=== PATIENT | female | born 1985 | race Caucasian/White ===

== ENCOUNTER 2017-08-04 07:30 | Inpatient (IN) | payer OTHER ==
--- NOTE | 2017-07-22 15:46 | HP ---
ADDENDUM: PLAN: Laparoscopic removal of laparoscopic adjustable gastric band and subcutaneous components and laparoscopic Ellie-en-Y gastric bypass possible laparoscopic cholecystectomy JEAN FRYE, LEONARD [id number]/CPS #: [id number] MTDD
--- NOTE | 2017-07-22 15:46 | HP ---
ADDENDUM NOW INCLUDED ON THIS REPORT HISTORY AND PHYSICAL: DATE OF ADMISSION: 08/04/17 DATE OF ENCOUNTER: 07/22/17 ADMITTING PHYSICIAN: Dr. Bear.* (DICTATED BY JEAN FRYE NP) CHIEF COMPLAINT: Morbid obesity. HISTORY OF PRESENT ILLNESS: Ms. Keita is a 32-year-old female with history of obesity. She had a laparoscopic adjustable gastric band placed in 2010 with initial good results and weight loss of approximately 34% of excess body weight. Unfortunately, she did experience weight regain and has elected to undergo laparoscopic Ellie-en-Y gastric bypass and removal of laparoscopic adjustable gastric band with Dr. Bear on 08/04/17. Preoperative workup did demonstrate gallstones. Dr. Bear recommends possible laparoscopic cholecystectomy at the time of surgery as well. PAST MEDICAL HISTORY: Significant for anxiety, depression and hypertension, which is untreated at this time. PAST SURGICAL HISTORY: Laparoscopic adjustable gastric band placed in 2010. MEDICATIONS: 1. Effexor immediate release 100 mg 3 times a day. 2. Flintstones Complete 60 mg 1 daily. 3. Vitamin D3, 5000 international units once per day. 4. Implanon 68 mg. 5. Diphenhydramine 50 mg as needed. ALLERGIES: No known drug allergies. FAMILY HISTORY: Positive for diabetes, hypertension and hyperlipidemia, mental illness, obesity and thyroid disease. SOCIAL HISTORY: The patient is legally . She lives with her mother and father. 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 She rarely consumes alcohol. Denies drug use. Does not smoke. REVIEW OF SYSTEMS: Constitutional: The patient denies constitutional systems. HEENT: Denies headache, lightheadedness or dizziness. Cardiovascular: Reports hypertension which is not medicated. Denies chest pain, arm pain with exertion, heart attack, heart murmur, heart palpitations, high blood pressure, pulmonary embolism, DVT. Respiratory: Reports shortness of breath with exercise. Otherwise, no respiratory complaints. GI: Reports constipation. Denies GERD, nausea, or vomiting. : Denies nocturia, urinary frequency or urgency. Uses Implanon for control and is on her menstrual cycle right now. Musculoskeletal: Denies musculoskeletal symptoms. Neuro: Denies dizziness, blurred vision or headache. Psych: Reports anxiety and depression which is well controlled with medication. Denies suicidal thoughts. PHYSICAL EXAMINATION GENERAL: On examination, the patient is noted to be calm and cooperative, in no acute distress. She is alert and oriented x3. Healthy, well developed, appropriately groomed, appears to have centripetal obesity. VITAL SIGNS: Height is 5 feet 7 inches, weight 270 pounds 2 ounces, BMI is 42.3. Blood pressure is 150/85, pain is 0, temperature is 97.1, pulse 72, respirations 16. HEENT: Head, face is atraumatic, normocephalic on inspection. Ears, nose, mouth, throat, auditory acuity; hearing is grossly normal for conversation, dentition in good repair. NECK: Normal to inspection. RESPIRATORY: Respiration rate is normal. Auscultate clear lungs sounds bilaterally. CARDIOVASCULAR: Heart rate is regular. S1 and S2. No murmurs, gallops, or rubs are auscultated. ABDOMEN: Obese, nontender, nondistended. Bowel sounds auscultated in four quadrants. EXTREMITIES: Peripheral circulation is normal. No evidence of clubbing or cyanosis. Positive DP pulse bilaterally. MUSCULOSKELETAL: She walks with normal gait and station. NEURO: She is alert and oriented x3. Good historian. Speech is articulate and fluent. SKIN: Warm and dry. PSYCH: Mood is normal. Affect is normal. Cognition, orientation is intact to person, place and time. Judgment and insight are grossly intact. ASSESSMENT AND PLAN: Ms. Keita is a 32-year-old female, status post laparoscopic adjustable gastric band with postoperative weight regain and morbid obesity. She elects to undergo removal of laparoscopic adjustable gastric band, laparoscopic Ellie-en-Y gastric bypass and possible laparoscopic cholecystectomy with Dr. Bear on 08/04/17. Prescription for Lortab Elixir was sent to her pharmacy. She will follow up with Dr. Bear in the office on 08/12/17. ADDENDUM: PLAN: Laparoscopic removal of laparoscopic adjustable gastric band and subcutaneous components and laparoscopic Ellie-en-Y gastric bypass possible laparoscopic cholecystectomy JEAN FRYE, LEONARD [id number]/[facility] #: [id number]/CPS #: [id number] [facility]ITAL[facility]ek[facility]
[~2017-08-04 07:30] MED LIST: Dexamethasone IV* 4 MG/ML 1 ML (4 MG) IV SLOW PU ONE; Famotidine IV* 10 MG/ML 2 ML (20 mg) IV ONE; Scopolamine 1.5 mg* PATCH TRANSDERM ONE
[2017-08-04] MEDS ORDERED: Buffered Lidocaine 0.9% SYRIN* 5 ML/SYR SYRINGE ONE (07:36)
[2017-08-04] MEDS ORDERED: Scopolamine 1.5 mg* PATCH ONE (07:36)
[2017-08-04] MEDS ORDERED: Dexamethasone IV* 4 MG/ML 1 ML (4 MG) ONE (07:36)
[2017-08-04] MEDS ORDERED: ceFAZolin 1 GM ADVAN(*) 1 GM ADDV.VIAL IVPB ONE (07:36)
[2017-08-04] MEDS ORDERED: Clindamycin 900 MG IVPREMIX(* 900 MG/50 ML SDV IV ONE (07:36)
[2017-08-04] MEDS ORDERED: ceFAZolin 2 GM PREMIX (*) 2 GM/50 ML BAG IVPB ONE (07:36)
[2017-08-04] MEDS ORDERED: Famotidine IV* 10 MG/ML 2 ML (20 mg) ONE (07:36)
[2017-08-04] MEDS ORDERED: Heparin VIAL(*) 5000 UNITS/ML VIAL (FIVE THOUSAND) ONE (07:37)
[2017-08-04] MEDS: Buffered Lidocaine 0.9% SYRIN* 5 ML/SYR SYRINGE INTRADERM ONE ×2 (07:55→15:55)
[2017-08-04] MEDS ORDERED: Bupivacaine 0.5% SDV PF* 30 ML VIAL ONE (10:27)
[2017-08-04] MEDS ORDERED: Methylene Blue 0.5 %* 50 MG/10 ML AMP IV ONE (10:27)
[2017-08-04] MEDS ORDERED: Acetaminophen IV 1GM/100ML * 1,000 MG/100 ML VIAL IVPB ONE (10:30)
[2017-08-04] MEDS ORDERED: PROCHLORPERAZINE INJ 5 MG/ML 2 ML VIAL IV PRN (10:30)
[2017-08-04] MEDS ORDERED: Morphine INJ* 2 MG/ML 1 ML CARPUJECT IV PRN (10:30)
[2017-08-04] MEDS ORDERED: fentaNYL* 50 MCG/ML 2 ML VIAL (100 MCG VIAL) IV PRN (10:30)
[2017-08-04] MEDS ORDERED: fentaNYL* 50 MCG/ML 2 ML VIAL (100 MCG VIAL) ONE ×3 (10:32→13:22)
[2017-08-04] MEDS ORDERED: Midazolam* 1 MG/ML 5 ML VIAL (5 MG) ONE (10:32)
[2017-08-04] MEDS ORDERED: Rocuronium* 10 MG/ML VIAL ONE ×2 (10:46→11:37)
[2017-08-04] MEDS ORDERED: Propofol* 10 MG/ML 20 ML BTL IV PUSH ONE (10:49)
[2017-08-04] MEDS ORDERED: Lidocaine 2% PF * 5 ML VIAL ONE (10:49)
[2017-08-04] MEDS ORDERED: Labetalol IV* 5 MG/ML 20 ML VIAL ONE (11:09)
[2017-08-04] MEDS ORDERED: Ketorolac INJ* 30 MG/ML 1 ML VIAL ONE ×2 (11:10→15:46)
[2017-08-04] MEDS ORDERED: EPHEDrine (Pressors)* 50 MG/ML VIAL ONE (11:28)
[2017-08-04] MEDS ORDERED: Phenylephrine IV* 40 MCG/ML 10 ML SYRINGE ONE (11:57)
[2017-08-04] MEDS ORDERED: Ondansetron INJ* 2 MG/ML VIAL ONE ×2 (12:57→15:46)
[2017-08-04] MEDS ORDERED: diPHENhydraMINE IV* 50 MG/ML 1 ml VIAL (BENADRYL) SLOW PUSH PRN (13:54)
[2017-08-04] MEDS ORDERED: Acetaminophen IV 1GM/100ML * 100 ML ONE (13:57)
--- NOTE | 2017-08-04 14:05 | PN ---
Progress Note - Progress Note Date of Service: 08/04/17 Note: Brief Operative Note: Pre-op: Morbid obesity Post-op: Same Procedure: Laparoscopic removal of gastric band with conversion to Ellie-en-Y gastric bypass, and laparoscopic cholecystectomy Surgeon: Dr. Bear Chief Commercial Officer: BEVERLY Gonsalez/ BEVERLY Breaux Anaesthesia: GETA EBL: Minimal Catheter: Marley to gravity Fluids: LR 2000 cc Drains: BALDEV to self suction Specimen: Gall bladder/ lap band Findings: See dictated op note
[2017-08-04] MEDS ORDERED: PROCHLORPERAZINE INJ 5 MG/ML 2 ML VIAL ONE (14:16)
[2017-08-04] MEDS: Ketorolac INJ* 30 MG/ML 1 ML VIAL IV PRN ×2 (15:49→21:59)
[2017-08-04] MEDS: Ondansetron INJ* 2 MG/ML VIAL IV PRN (15:49)
[2017-08-04] MEDS: HYDROmorphone INJ* 2 MG/ML CARPUJECT SYRINGE IV PRN ×2 (16:32→19:50)
[2017-08-04] MEDS: Famotidine IV* 10 MG/ML 2 ML (20 mg) IV SLOW PU SCH (21:48)
[2017-08-04] MEDS: Heparin VIAL(*) 5000 UNITS/ML VIAL (FIVE THOUSAND) SUBCUT SCH (21:53)
[2017-08-04] MEDS: VENLAFAXINE 100 MG PO SCH (22:05)
[2017-08-05] MEDS: HYDROmorphone INJ* 2 MG/ML CARPUJECT SYRINGE IV PRN ×2 (01:55→09:49)
--- NOTE | 2017-08-05 02:46 | OP ---
CC: Alex Everett MD; [facility] * DATE OF OPERATION: 08/04/17 - ROOM #353 DATE OF : 85 SURGEON: Morro Bear MD ASSISTANTS: BEVERLY Rob and BEVERLY Wallace ANESTHESIOLOGIST: Brian Raya MD ANESTHESIA: General endotracheal. PRE-OP DIAGNOSES: Morbid obesity, status post laparoscopic adjustable gastric banding, and cholelithiasis. POST-OP DIAGNOSES: Morbid obesity, status post laparoscopic adjustable gastric banding, and cholelithiasis. OPERATIVE PROCEDURES: Laparoscopic removal of laparoscopic adjustable gastric band and subcutaneous components with conversion to laparoscopic Ellie-en-Y gastric bypass and laparoscopic cholecystectomy. ESTIMATED BLOOD LOSS: 20 mL. IV FLUIDS: 2 L. SPECIMEN: Gallbladder. DRAINS: A 7-mm Rc Hauser. COMPLICATIONS: None. COUNTS: Needle, instrument, and sponge counts were correct. DESCRIPTION OF PROCEDURE: The patient was brought to the operating room and placed on the table supine. Sequential compression devices were placed on both lower extremities. General anesthesia was administered. Marley catheter was placed. She was positioned and padded appropriately. She received appropriate intravenous antibiotics. She was prepped and draped in the usual sterile fashion. A time-out was performed. Local anesthetic was infiltrated into the skin and soft tissue prior to making each incision. The initial entry into the abdomen was through a left upper quadrant incision accommodating a 12-mm optical trocar. Carbon dioxide was insufflated to a pressure of 15 mmHg. Under direct visualization, a 12-mm bladeless trocar was placed in the supraumbilical midline and also in the right upper quadrant. A 5-mm trocars were placed in the right upper quadrant medially and left upper quadrant laterally. A Janessa liver retractor was placed percutaneously in the subxiphoid position and used to elevate the left lobe of the liver. Tubing for the band was followed to the stomach. There were no adhesions to the undersurface of the liver. The omentum was adherent to the band and this was divided using a combination of cautery and LigaSure. The band was noted to be encapsulated. The capsule was opened with cautery. The buccal was identified. The band was unlocked and the buccal was cut and removed. The band was removed from the retrogastric tunnel. The gastrogastric plication sutures were then taken down using a combination of sharp and blunt dissection with LigaSure on vascular portions of the adhesions. After taking down the gastrogastric plication, the capsule of the band was incised on the right side of the stomach. A perigastric dissection was then undertaken on the lesser curvature bluntly and the lesser sac was entered. A gastric pouch was fashioned first with a transverse firing using the EndoGIA stapler with a purple cartridge. Retrogastric dissection was then performed using blunt dissection and with LigaSure to dissect the retrogastric approach to the area of the angle of His. A window was created there in the avascular tissues and then the gastric pouch was completed with additional firings of the EndoGIA stapler using reinforced purple cartridges on the vertical portions of the gastric pouch. After completing the division, the pouch was inspected. The size was estimated at 15 to 30 mL volume. Next, the transverse colon was retracted superiorly and the ligament of Treitz was identified. The jejunum was measured out 30 to 40 cm and this loop was secured to the left lateral staple line on the gastric pouch with the use of 3-0 silk interrupted sutures. Then, the gastrojejunal anastomosis was performed with the EndoGIA stapler with a 30-mm levine cartridge and the closure of the common gastroenterotomy was performed over a 36- Faroese gastric lavage tube. Lastly, the loop of jejunum was divided to the left of the anastomosis with the EndoGIA stapler with a levine cartridge. The anastomosis was then tested with methylene blue dye solution instilled through the orogastric tube and no leak was identified. The jejunum was then measured out for a 75 cm Ellie limb and at this point, a functional end- to-side jejunojejunostomy was created. This was done with the EndoGIA stapler with a 60-mm levine cartridge. The common enterotomy was closed again with 3-0 PDS. Anti-obstruction structures of 3-0 silk were placed proximally and distally to the anastomosis. The mesenteric defect was closed with 3-0 silk in a running fashion. Lastly, the Janessa liver retractor was repositioned and the cholecystectomy was performed. There were some chronic adhesions near the infundibulum. The fundus retracted superiorly and the adhesions at the infundibulum were taken down sharply. The peritoneum investing the gallbladder was incised along the medial and lateral aspects in order to identify the wall of the gallbladder. The dissection was then performed in the area of the triangle of Calot. The cystic artery was dissected out as well as the cystic duct and a critical view was obtained. The cystic artery was divided with a LigaSure. Both posterior and anterior branches were divided separately. The cystic duct was doubly clipped and divided and then gallbladder was freed from attachments to the liver bed using the electrocautery. Once the gallbladder was freed, it was placed in the endoscopic retrieval bag. Clips were noted to be intact and hemostasis was excellent. The Lap-Band port was removed by incising the skin through the previous scar. Subcutaneous tissues were divided with cautery and the port was freed. The port was divided from the tubing and then the tubing was allowed to retract within the abdominal cavity. The tubing for the band and the bag containing the gallbladder were retrieved through the left upper quadrant port, both intact. The BALDEV drain was then placed into the abdominal cavity and withdrawn through the left upper quadrant 5 mm port site. The BALDEV drain was positioned posterior to and along the vertical access of the gastric pouch and anastomosis. The drain was secured to the skin with 3-0 Prolene. It was placed to the suction bulb. The ports were removed under direct visualization. Carbon dioxide was released. Skin incisions were irrigated and closed with case. Dressings were applied. The patient tolerated this procedure well. She was extubated and transferred to Recovery in stable condition. [id number]/[facility] #: [id number] FAUSTINO
[2017-08-05] MEDS: Ketorolac INJ* 30 MG/ML 1 ML VIAL IV PRN ×2 (06:28→16:52)
[2017-08-05] MEDS: Heparin VIAL(*) 5000 UNITS/ML VIAL (FIVE THOUSAND) SUBCUT SCH ×3 (06:32→22:24)
[2017-08-05] MEDS ORDERED: Acetaminophen ADULT LIQ* 650 MG/20.3 ML UDC PO PRN (09:07)
--- NOTE | 2017-08-05 09:13 | SURGPN ---
Subjective - Introduction -: Admitted on: 08/04/17 Patient's surgical date: 08/04/17 Procedure completed: Laparoscopic gastric band removal, RYGB and cholecytectomy - Medications -: Active Medications Generic Name Dose Route Start Last Admin Trade Name Freq PRN Reason Stop Dose Admin Diphenhydramine HCl 25 mg 08/04/17 13:54 Benadryl Iv* SLOW PUSH Q6H PRN ITCHING Famotidine 20 mg 08/04/17 21:00 08/04/17 21:48 Pepcid Iv* IV SLOW PU 20 mg BID GREG Administration Heparin Sodium (Porcine) 5,000 units 08/04/17 22:00 08/05/17 06:32 Heparin Vial(*) SUBCUT 5,000 units Q8HR GREG Administration Hydromorphone HCl 0.5 mg 08/04/17 13:54 08/05/17 01:55 Dilaudid Inj* IV 0.5 mg Q3H PRN Administration PAIN Potassium Chloride/Dextrose 1,000 mls @ 125 mls/hr 08/05/17 13:55 D5w 1/2 Ns Kcl 20 Meq 1000 Ml* IV PER RATE GREG Lactated Ringer's 1,000 mls @ 150 mls/hr 08/04/17 14:00 08/05/17 04:46 Lactated Ringers 1000 Ml Bag* IV 08/05/17 13:55 150 mls/hr PER RATE GREG Administration Ketorolac Tromethamine 30 mg 08/04/17 13:54 08/05/17 06:28 Toradol Inj* IV 08/06/17 13:55 30 mg Q6H PRN Administration PAIN Ondansetron HCl 4 mg 08/04/17 13:54 08/04/17 15:49 Zofran Inj* IV 4 mg Q6H PRN Administration NAUSEA/VOMITING Pharmacy Profile Note 1 note 08/07/17 06:00 Scopolamine Patch Remove* PATCH OFF 08/07/17 06:01 ONCE ONE Venlafaxine HCl 100 mg 08/04/17 21:00 08/04/17 22:05 Effexor Tab (Nf) PO 100 mg TID GREG Administration Protocol - Comments Comments: Patient seen and examined at bedside. Has been walking down prajapati few times already. Doing very well, has no complaints. Denies nausea, vomiting or abdominal pain. Passing flatus, Marley already removed last night. Objective - Objective -: Awake and alert, comfortable and in NAD. - Intake and Output -: Intake & Output 08/03/17 08/04/17 08/05/17 08/06/17 06:59 06:59 06:59 06:59 Intake Total 4251 Output Total 1800 Balance 2451 Weight 259 lb Intake: IV Fluids 4221 LR 4221 Oral 30 Output: BALDEV #1 75 Urine 1350 Marley 375 Surgical Physical Exam - Comments -: Vitals reviewed, stable, Tmax 98.5 Lungs CTA bilat. Heart RRR, no murmurs Abdomen soft, NT, ND. Incisions clean, dry and intact. No guarding, rigidity or rebound. Ext. without edema Assessment and Plan - Assessment -: POD#1, s/p laparoscopic gastric band removal, Ellie-en-Y gastric bypass and cholecystectomy, doing well. - Plan Additional Comments: Start bariatric clear liquid diet Ambulate Likely home in AM 12
[2017-08-05] MEDS: Famotidine IV* 10 MG/ML 2 ML (20 mg) IV SLOW PU SCH ×2 (09:49→19:55)
[2017-08-05] MEDS: VENLAFAXINE 100 MG PO SCH ×3 (09:49→19:58)
[2017-08-05] MEDS: Ondansetron INJ* 2 MG/ML VIAL IV PRN (09:54)
[2017-08-05] MEDS: HYDROcodone/ACET. 7.5/325 LIQ* 15 ML UDC PO PRN ×2 (14:11→19:54)
[2017-08-05] MEDS: D5W 1/2 NS KCl 20 Meq 1000 ML* 1,000 ML IV SCH ×2 (14:19→22:23)
[2017-08-06] MEDS: Ketorolac INJ* 30 MG/ML 1 ML VIAL IV PRN ×2 (00:22→06:15)
[2017-08-06] MEDS: HYDROcodone/ACET. 7.5/325 LIQ* 15 ML UDC PO PRN (03:52)
[2017-08-06] MEDS: Heparin VIAL(*) 5000 UNITS/ML VIAL (FIVE THOUSAND) SUBCUT SCH (06:14)
[2017-08-06] MEDS: D5W 1/2 NS KCl 20 Meq 1000 ML* 1,000 ML IV SCH (06:18)
[2017-08-06 07:37] VITALS: BP 136/75
[2017-08-06] MEDS: VENLAFAXINE 100 MG PO SCH (09:09)
[2017-08-06] MEDS: Famotidine IV* 10 MG/ML 2 ML (20 mg) IV SLOW PU SCH (09:18)
--- NOTE | 2017-08-06 09:44 | PN ---
Progress Note - Progress Note Date of Service: 08/06/17 Note: Brief Surgery Note: (see full Discharge Summary) Seen by Dr. Bear this a.m. Doing well. OK for d/c home. Instructions reviewed.
--- NOTE | 2017-08-06 16:23 | DS ---
CC: Dr. Alex Everett * DATE OF ADMISSION: 08/04/2017. DATE OF DISCHARGE: 08/06/2017. ATTENDING SURGEON: Dr. Morro Bear * (BEVERLY Rob dictating). HOSPITAL COURSE: Please refer to admission history and physical for admission details. The patient was taken to the operating room on 08/04/2017 at which time she underwent removal of lap band with conversion to Ellie-en-Y gastric bypass. Laparoscopic cholecystectomy was also performed at that time. The patient has had an otherwise uneventful postoperative course with gradual improvement in pain and tolerance of bariatric clear liquids. The patient was seen the morning of discharge by Dr. Bear. PHYSICAL EXAMINATION: General: No acute distress. Vital Signs: Temperature 98.6, blood pressure 136/75, pulse 84, respirations 20, room air saturation 99 percent. Heart: Regular rate and rhythm. Lungs: Clear to auscultation. Abdomen: Healing laparoscopic incision sites with intact case and small amounts of serosanguineous drainage. BALDEV drain with small to moderate amount of serosanguineous drainage. Drain was removed prior to discharge. Dry sterile dressing placed. IMPRESSION: Status post laparoscopic removal of lap band with conversion to gastric bypass with cholecystectomy, doing well, and ready for discharge. PLAN: Discharge home. Instructions were reviewed regarding wound care, diet and activity. She has a follow-up with the [facility] next week. She will use [id number] Tylenol and/or ibuprofen prn for mild to moderate pain. She has a prescription for Hydrocodone elixir prn for stronger pain. BEVERLY ROB [id number]/[facility] #: [id number] [facility]ALTH[facility]
[2017-08-07] MEDS ORDERED: Scopolamine PATCH Remove* 1 NOTE MISC PATCH OFF ONE (06:00)
== END 2017-08-06 09:45 | disposition home or self-care (01) | DRG 403 ==
LOC: AA 07:30 → SSU 15:37
PROVIDERS: ADMIT Surgery; ATTEND Surgery
PROC: 0D164ZA Bypass Stomach to Jejunum, Percutaneous Endoscopic Approach (ICD-10-PCS; 2017-08-04)
PROC: 0FT44ZZ Resection of Gallbladder, Percutaneous Endoscopic Approach (ICD-10-PCS; 2017-08-04)
PROC: 0DP64CZ Removal of Extraluminal Device from Stomach, Percutaneous Endoscopic Approach (ICD-10-PCS; principal; 2017-08-04 10:00)
DX: E66.01 Morbid (severe) obesity due to excess calories (principal); E78.5 Hyperlipidemia, unspecified; Z68.41 Body mass index [BMI] 40.0-44.9, adult; I10 Essential (primary) hypertension; K80.20 Calculus of gallbladder without cholecystitis without obstruction; F32.9 Major depressive disorder, single episode, unspecified; F41.9 Anxiety disorder, unspecified; Z83.3 Family history of diabetes mellitus; Z82.49 Family history of ischemic heart disease and other diseases of the circulatory system; Z81.8 Family history of other mental and behavioral disorders; Z83.49 Family history of other endocrine, nutritional and metabolic diseases; Z72.89 Other problems related to lifestyle
CPT/HCPCS: 81025; 88304; 94760; A9270-GY; C1776; J0690; J0780; J1100; J1170; J1644; J1885; J2250; J2405; J2704; J3010

== ENCOUNTER 2018-10-20 17:33 | Emergency (ER) | payer OTHER ==
[2018-10-20 17:42] VITALS: BP 153/86
[2018-10-20] MEDS ORDERED: cefTRIAXone VIAL(*) 250 MG VIAL IM ONE (18:15)
[2018-10-20] MEDS ORDERED: Azithromycin TAB* 250 MG PO ONE (18:16)
--- NOTE | 2018-10-20 18:28 | UC ---
Complaint Female HPI - HPI Summary HPI Summary: Pt presents with request for STD testing. Pt reports that intimate partner revealed to her that he has been having sexual relations with another partner and now is having urinary symptoms and was treated for STD's. Pt is currently not having any symptoms other than mild dysuria. Pt currently has menses. - History Of Current Complaint Chief Complaint: UCGU Stated Complaint: STD TESTING Time Seen by Provider: 10/20/18 17:55 Hx Obtained From: Patient Hx Last Menstrual Period: 10/18/18 ?: No Onset/Duration: Sudden Onset Severity Initially: Mild Severity Currently: Mild Pain Intensity: 0 Character: Dull, Burning Aggravating Factor(s): Urination Associated Signs And Symptoms: Positive: Negative - Risk Factors Ectopic Risk Factor: Negative Ovarian Torsion Risk Factor: Reproductive Age - Allergies/Home Medications Allergies/Adverse Reactions: Allergies Allergy/AdvReac Type Severity Reaction Status Date / Time No Known Allergies Allergy Verified 10/20/18 17:42 PMH/Surg Hx/FS Hx/Imm Hx Previously Healthy: Yes - Surgical History Surgical History: Yes Surgery Procedure, Year, and Place: lap banding 2010. dental surgery x4 1996 - Family History Known Family History: Positive: Cardiac Disease - Social History Occupation: Employed Full-time Lives: With Family Alcohol Use: Weekly Substance Use Type: None Smoking Status (MU): Never Smoked Tobacco Have You Smoked in the Last Year: No - Immunization History Most Recent Influenza Vaccination: 2016 Most Recent Pneumonia Vaccination: none Review of Systems All Other Systems Reviewed And Are Negative: Yes Constitutional: Positive: Negative Skin: Positive: Negative Eyes: Positive: Negative ENT: Positive: Negative Respiratory: Positive: Negative Cardiovascular: Positive: Negative Gastrointestinal: Positive: Negative Genitourinary: Positive: Dysuria Motor: Positive: Negative Neurovascular: Positive: Negative Musculoskeletal: Positive: Negative Neurological: Positive: Negative Psychological: Positive: Negative Is Patient Immunocompromised?: No Physical Exam Triage Information Reviewed: Yes Appearance: Well-Appearing Vital Signs: Initial Vital Signs Temp 97.8 F 10/20/18 17:37 Pulse 97 10/20/18 17:37 Resp 18 10/20/18 17:37 BP 153/86 10/20/18 17:37 Pulse Ox 100 10/20/18 17:37 Vital Signs Reviewed: Yes Eye Exam: Normal ENT Exam: Normal Dental Exam: Normal Neck exam: Normal Respiratory Exam: Normal Cardiovascular Exam: Normal Musculoskeletal Exam: Normal Neurological Exam: Normal Psychological Exam: Normal Skin Exam: Normal Complaint Female Dx - Differential Dx/Diagnosis Differential Diagnosis/HQI/PQRI: Sexually Transmitted Disease, Urinary Tract Infection Provider Diagnosis: Possible exposure to STD Discharge - Sign-Out/Discharge Documenting (check all that apply): Patient Departure All imaging exams completed and their final reports reviewed: No Studies - Discharge Plan Condition: Stable Disposition: HOME Patient Education Materials: Safe Sex (ED), Dysuria (ED) Referrals: Alex Everett MD [Primary Care Provider] - If Needed - Billing Disposition and Condition Condition: STABLE Disposition: Home
[2018-10-20] MEDS ORDERED: Lidocaine 1% INJ* 10 MG/ML 30 ML SDV INJ ONE (18:37)
[2018-10-20] MEDS ORDERED: Lidocaine 2% PF * 5 ML VIAL INJ ONE (18:46)
[2018-10-21 11:58] LABS: Hepatitis C Antibody Nonreactive (Nonreactive)
[2018-10-22 13:56] LABS: Neisseria gonorrhoeae (GC) RNA Negative (Negative)
[2018-10-22 13:59] LABS: Herpes Simplex Virus I IgG AB Negative (Negative); Herpes Simplex Virus II IgG AB Negative (Negative)
== END 2018-10-20 19:15 | disposition home or self-care (01) ==
LOC: UCEAST 17:33
DX: Z11.3 Encounter for screening for infections with a predominantly sexual mode of transmission (principal); R30.0 Dysuria
CPT/HCPCS: 36415; 81003; 86592; 86695; 86696; 86703; 86803; 87491; 87591; 96372; 99212; A9270-GY; G0463; J0696